=== PATIENT | male | born 1950 | race Caucasian/White ===

== ENCOUNTER 2017-02-20 11:59 | Emergency (ER) | payer OTHER, BC ==
[~2017-02-20] VITALS: Ht 188 cm; Wt 90.0 kg
[~2017-02-20 11:59] MED LIST: ADVIL200 M1 PO; CELEBREX200 MG PO; CYMBALTA60 MG PO; EPIPEN ADU0.3 MG/0.3 IM; ERYTHROMYC1 APPLICAT LEFT EYE; FLOMAX0.4 MG PO; MOBIC15 MG PO; NITROSTAT0.4 MG PO; NORCO 5/3251 TABLET PO; NORCO 7.5/321 TABLET PO; PERCOCET 5/31 TABLET PO; PRAVACHOL40 MG PO; ULTRAM ER100 MG PO; VALIUM2 MG PO; VALIUM5 MG PO; VICODIN PO
[2017-02-20] MEDS ORDERED: ULTRAM50 MG PO (13:26)
[2017-02-20] MEDS ORDERED: KEFLEX500 MG PO (13:26)
[2017-02-20 13:41] VITALS: BP 122/78
== END 2017-02-20 13:43 | disposition home or self-care (01) ==
LOC: EME 11:59 → EXP 11:59
PROC: 0HQLXZZ Repair Left Lower Leg Skin, External Approach (ICD-10-PCS; principal; 2017-02-20)
DX: S81.812A Laceration without foreign body, left lower leg, initial encounter (principal); Y93.9 Activity, unspecified; W22.8XXA Striking against or struck by other objects, initial encounter; W26.8XXA Contact with other sharp object(s), not elsewhere classified, initial encounter
CPT/HCPCS: 99281; 99284

== ENCOUNTER 2017-03-07 05:15 | Inpatient (IN) | payer OTHER, BC ==
[~2017-03-07] VITALS: Ht 188 cm; Wt 86.6 kg
[~2017-03-07 05:15] MED LIST changes: +ADVIL200 MG PO; +KEFLEX500 MG PO; +MULTIPLE VITAM1 EACH PO; +ULTRAM50 MG PO
[2017-03-07 06:21] VITALS: BP 120/77
[2017-03-07 14:06] VITALS: BP 118/70
[2017-03-07 15:38] VITALS: BP 115/62
[2017-03-07 20:09] VITALS: BP 115/65
[2017-03-07 23:55] VITALS: BP 126/64
[2017-03-08 03:43] VITALS: BP 123/58
[2017-03-08 05:59] LABS: HEMATOCRIT 32.9 % (38.0-50.0); MCV 96.2 FL (86-99)
[2017-03-08 08:00] VITALS: BP 127/59
[2017-03-08] MEDS ORDERED: ASPIRIN EC325 MG PO (10:18)
[2017-03-08] MEDS ORDERED: OXYCODONE HCL5 MG PO (10:19)
[2017-03-08 12:17] VITALS: BP 106/59
== END 2017-03-08 13:26 | disposition home health service (06) | DRG 483 ==
LOC: 2SOUTH → 3WEST 13:18 → EDSTATUS 13:38 → SDC 13:38 → 2SOUTH 13:41 → 3WEST 03-08 13:26
PROVIDERS: Orthopaedic Surgery
PROC: 0RRJ00Z Replacement of Right Shoulder Joint with Reverse Ball and Socket Synthetic Substitute, Open Approach (ICD-10-PCS; principal; 2017-03-07)
DX: M19.011 Primary osteoarthritis, right shoulder (principal); Z96.612 Presence of left artificial shoulder joint; G89.29 Other chronic pain; E78.2 Mixed hyperlipidemia; N40.0 Benign prostatic hyperplasia without lower urinary tract symptoms; Z88.1 Allergy status to other antibiotic agents; Z91.041 Radiographic dye allergy status; Z82.49 Family history of ischemic heart disease and other diseases of the circulatory system
CPT/HCPCS: 73020; 85014; 85018; J0131; J0330; J0690; J1170; J2250; J2405; J2765; J2795; J3010; J7050; J7120

== ENCOUNTER 2018-05-06 11:23 | Emergency (ER) | payer OTHER, BC ==
[~2018-05-06] VITALS: Ht 188 cm; Wt 85.0 kg
[~2018-05-06 11:23] MED LIST changes: +ASPIRIN EC325 MG PO; +OXYCODONE HCL5 MG PO
[2018-05-06 13:41] VITALS: BP 142/91
== END 2018-05-06 13:43 | disposition home or self-care (01) ==
LOC: EME 11:23
PROC: 0M943ZX Drainage of Left Elbow Bursa and Ligament, Percutaneous Approach, Diagnostic (ICD-10-PCS; principal; 2018-05-06)
DX: M70.22 Olecranon bursitis, left elbow (principal); E78.5 Hyperlipidemia, unspecified; Z88.2 Allergy status to sulfonamides
CPT/HCPCS: 73080; 99281; 99284